=== PATIENT | male | born 1950 | race Caucasian/White ===

== ENCOUNTER 2020-01-17 18:44 | Emergency (ER) | payer BC, MEDICARE ==
--- NOTE | 2020-01-17 19:14 | EDM.PDOC ---
ED HPI GENERAL MEDICAL PROBLEM - General Chief Complaint: Chest Pain Stated Complaint: DIZZY Time Seen by Provider: 01/17/20 19:04 - History of Present Illness INITIAL COMMENTS - FREE TEXT/NARRATIVE: 69-year-old male presents the emergency room with a chief complaint of dizziness and chest pain. Patient around 3:00 this afternoon noticed when he stood up he got dizzy. He also had some sharp lower chest discomfort with this. Patient has a history of type 2 diabetes hypertension hyperlipidemia. Family history is significant for brother who had a heart attack in his 50s the patient smoked but quit 33 years ago and quit alcohol 43 years ago. The patient is diaphoretic in his sleep but did not have any diaphoresis with today's events he also had no breathing difficulty shortness of breath. Patient is type 2 diabetes he has been treated for about 5 years. The patient does have some vague back pain mostly on the right side. It is unclear how long this is been present. - Related Data Allergies Allergy/AdvReac Type Severity Reaction Status Date / Time No Known Allergies Allergy Verified 01/17/20 18:56 Home Meds: Home Meds Canagliflozin [Invokana] 300 mg PO DAILY 01/17/20 [History] Omeprazole 20 mg PO DAILY 01/17/20 [History] atorvaSTATin [Lipitor] 5 mg PO DAILY 01/17/20 [History] glipiZIDE [Glipizide ER] 5 mg PO DAILY 01/17/20 [History] metFORMIN HCl [Metformin ER Gastric] 1,000 mg PO DAILY 01/17/20 [History] ED ROS GENERAL - Review of Systems Review Of Systems: See Below Constitutional: Reports: No Symptoms HEENT: Reports: No Symptoms Respiratory: Reports: No Symptoms Cardiovascular: Reports: Chest Pain, Lightheadedness GI/Abdominal: Reports: No Symptoms : Reports: No Symptoms Musculoskeletal: Reports: No Symptoms Skin: Reports: No Symptoms Neurological: Reports: No Symptoms Psychiatric: Reports: No Symptoms Hematologic/Lymphatic: Reports: No Symptoms Immunologic: Reports: No Symptoms ED EXAM, GENERAL - Physical Exam Exam: See Below Exam Limited By: No Limitations General Appearance: Alert, No Apparent Distress Eye Exam: Bilateral Eye: Normal Inspection Ears: Normal External Exam, Normal Canal, Hearing Grossly Normal, Normal TMs Nose: Normal Inspection, Normal Mucosa, No Blood Throat/Mouth: Normal Inspection, Normal Lips, Normal Teeth, Normal Gums, Normal Oropharynx, Normal Voice, No Airway Compromise Respiratory/Chest: No Respiratory Distress, Lungs Clear, Normal Breath Sounds, No Accessory Muscle Use, Chest Non-Tender Cardiovascular: Normal Peripheral Pulses, Regular Rate, Rhythm, No Edema, No JVD, No Murmur GI/Abdominal: Normal Bowel Sounds, Soft, Non-Tender, No Organomegaly, No Distention, No Abnormal Bruit, No Mass Back Exam: Normal Inspection. No: CVA Tenderness (L), CVA Tenderness (R) Extremities: Normal Inspection, No Pedal Edema Neurological: Alert, Oriented, Normal Cognition Psychiatric: Normal Affect, Normal Mood Skin Exam: Warm, Dry, Intact EKG INTERPRETATION EKG Date: 01/17/20 Rhythm: NSR [place]: Normal P-Wave: Present QRS: Normal ST-T: Normal QT: Normal Comparison: NA - No Prior EKG EKG Interpretation Comments: Normal EKG Course - Vital Signs Last Recorded V/S: Last Vital Signs Temp 36.3 C 01/17/20 19:01 Pulse 71 01/17/20 19:01 Resp 16 01/17/20 19:01 BP 135/85 01/17/20 19:01 Pulse Ox 99 01/17/20 19:01 Orthostatic Blood Pressure [ 141/82 Standing] Orthostatic Blood Pressure [ 129/92 Sitting] Orthostatic Blood Pressure [ 121/81 Supine] - Orders/Labs/Meds Orders: Active Orders 24 hr Category Date Time Status Chest 1V Frontal [CR] Stat Exams 01/17/20 19:34 Taken Lactated Ringers [Ringers, Lactated] 1,000 ml Med 01/17/20 19:45 Active IV ASDIRECTED Medication Orders Lactated Ringer's (Ringers, Lactated) 1,000 mls @ 125 mls/hr IV ASDIRECTED KIRSTEN Labs: Laboratory Tests 01/17/20 01/17/20 01/17/20 Range/Units 19:14 19:14 19:14 WBC 7.62 (4.23-9.07) K/mm3 RBC 5.06 (4.63-6.08) M/mm3 Hgb 16.3 (13.7-17.5) gm/dl Hct 46.6 (40.1-51.0) % MCV 92.1 (79.0-92.2) fl MCH 32.2 (25.7-32.2) pg MCHC 35.0 (32.2-35.5) g/dl RDW Std Deviation 42.2 (35.1-43.9) fL Plt Count 292 (163-337) K/mm3 MPV 10.9 (9.4-12.3) fl Neut % (Auto) 58.1 (34.0-67.9) % Lymph % (Auto) 30.7 (21.8-53.1) % [place] % (Auto) 7.0 (5.3-12.2) % Eos % (Auto) 3.4 (0.8-7.0) Baso % (Auto) 0.4 (0.1-1.2) % Neut # (Auto) 4.43 (1.78-5.38) K/mm3 Lymph # (Auto) 2.34 (1.32-3.57) K/mm3 [place] # (Auto) 0.53 (0.30-0.82) K/mm3 Eos # (Auto) 0.26 (0.04-0.54) K/mm3 Baso # (Auto) 0.03 (0.01-0.08) K/mm3 PT 10.4 (9.7-11.7) SECONDS INR 0.97 APTT 25 (22-31) SECONDS D-Dimer, Quantitative < 0.19 L (0.19-0.50) mg/L Sodium 140 (136-145) mEq/L Potassium 3.9 (3.5-5.1) mEq/L Chloride 102 (98-107) mEq/L Carbon Dioxide 29 (21-32) mEq/L Anion Gap 12.9 (5-15) BUN 20 H (7-18) mg/dL Creatinine 1.0 (0.7-1.3) mg/dL Est Cr Clr Drug Dosing 76.52 mL/min Estimated GFR (MDRD) > 60 (>60) mL/min BUN/Creatinine Ratio 20.0 H (14-18) Glucose 130 H (80-115) mg/dL Calcium 9.1 (8.5-10.1) mg/dL Magnesium 2.3 (1.8-2.4) mg/dl Total Bilirubin 0.6 (0.2-1.0) mg/dL AST 19 (15-37) U/L ALT 43 (16-63) U/L Alkaline Phosphatase 63 (46-116) U/L Troponin I < 0.017 (0.00-0.056) ng/mL Total Protein 7.6 (6.4-8.2) g/dl Albumin 4.3 (3.4-5.0) g/dl Globulin 3.3 gm/dL Albumin/Globulin Ratio 1.3 (1-2) Urine Color (Yellow) Urine Appearance (Clear) Urine pH (5.0-8.0) Ur Specific [place] (1.005-1.030) Urine Protein (Negative) Urine Glucose (UA) (Negative) Urine Ketones (Negative) Urine Occult Blood (Negative) Urine Nitrite (Negative) Urine Bilirubin (Negative) Urine Urobilinogen (0.2-1.0) Ur Leukocyte Esterase (Negative) 01/17/20 01/17/20 Range/Units 19:40 22:09 WBC (4.23-9.07) K/mm3 RBC (4.63-6.08) M/mm3 Hgb (13.7-17.5) gm/dl Hct (40.1-51.0) % MCV (79.0-92.2) fl MCH (25.7-32.2) pg MCHC (32.2-35.5) g/dl RDW Std Deviation (35.1-43.9) fL Plt Count (163-337) K/mm3 MPV (9.4-12.3) fl Neut % (Auto) (34.0-67.9) % Lymph % (Auto) (21.8-53.1) % [place] % (Auto) (5.3-12.2) % Eos % (Auto) (0.8-7.0) Baso % (Auto) (0.1-1.2) % Neut # (Auto) (1.78-5.38) K/mm3 Lymph # (Auto) (1.32-3.57) K/mm3 [place] # (Auto) (0.30-0.82) K/mm3 Eos # (Auto) (0.04-0.54) K/mm3 Baso # (Auto) (0.01-0.08) K/mm3 PT (9.7-11.7) SECONDS INR APTT (22-31) SECONDS D-Dimer, Quantitative (0.19-0.50) mg/L Sodium (136-145) mEq/L Potassium (3.5-5.1) mEq/L Chloride (98-107) mEq/L Carbon Dioxide (21-32) mEq/L Anion Gap (5-15) BUN (7-18) mg/dL Creatinine (0.7-1.3) mg/dL Est Cr Clr Drug Dosing mL/min Estimated GFR (MDRD) (>60) mL/min BUN/Creatinine Ratio (14-18) Glucose (80-115) mg/dL Calcium (8.5-10.1) mg/dL Magnesium (1.8-2.4) mg/dl Total Bilirubin (0.2-1.0) mg/dL AST (15-37) U/L ALT (16-63) U/L Alkaline Phosphatase (46-116) U/L Troponin I < 0.017 (0.00-0.056) ng/mL Total Protein (6.4-8.2) g/dl Albumin (3.4-5.0) g/dl Globulin gm/dL Albumin/Globulin Ratio (1-2) Urine Color Yellow (Yellow) Urine Appearance Clear (Clear) Urine pH 6.0 (5.0-8.0) Ur Specific [place] 1.020 (1.005-1.030) Urine Protein Negative (Negative) Urine Glucose (UA) 2+ H (Negative) Urine Ketones Negative (Negative) Urine Occult Blood Negative (Negative) Urine Nitrite Negative (Negative) Urine Bilirubin Negative (Negative) Urine Urobilinogen 0.2 (0.2-1.0) Ur Leukocyte Esterase Negative (Negative) Meds: Medications Generic Name Dose Route Start Last Admin Trade Name Freq PRN Reason Stop Dose Admin Lactated Ringer's 1,000 mls @ 125 mls/hr 01/17/20 19:45 Ringers, Lactated IV ASDIRECTED KIRSTEN Discontinued Medications Generic Name Dose Route Start Last Admin Trade Name Freq PRN Reason Stop Dose Admin Aspirin 324 mg 01/17/20 19:35 01/17/20 19:53 Aspirin PO 01/17/20 19:36 324 mg ONETIME ONE Administration Lactated Ringer's 500 mls @ 999 mls/hr 01/17/20 19:35 01/17/20 20:27 Ringers, Lactated IV 01/17/20 20:05 Infused .BOLUS ONE Infusion Ondansetron HCl 4 mg 01/17/20 19:44 01/17/20 19:53 Zofran IVPUSH 01/17/20 19:45 4 mg ONETIME ONE Administration - Re-Assessments/Exams Free Text/Narrative Re-Assessment/Exam: 01/17/20 20:05 Patient had a brief episode of emesis while giving us a urine specimen. 01/17/20 21:58 Labs look good chest x-ray shows no acute cardiopulmonary changes questionable fracture of the left rib unknown age. With the patient is diabetes that transient episode of vomiting we will check another troponin. The patient has n ot had any chest pain while here in the emergency room. This was brief with the dizziness. And the dizziness actually lasted much longer than the chest pain 01/17/20 23:08 Second troponin is negative we will discharge at this time patient is doing well. He has not developed any more dizziness or chest pain. Departure - Departure Time of Disposition: 23:08 Disposition: Home, Self-Care 01 Clinical Impression: Light headedness, Chest pain Referrals: Erik Whitt MD [Primary Care Provider] - Forms: ED Department Discharge Additional Instructions: Return to the emergency room with any questions problems or worsening symptoms. Follow-up with your regular physician early this next week discuss outpatient heart rhythm monitoring or possibly a stress test. Continue your routine medications If you have another episode such as this immediately check your blood sugar. You are not already doing so take a baby aspirin, 81 mg enteric-coated daily. Sepsis Event Note (ED) - Evaluation Sepsis Screening Result: No Definite Risk - Focused Exam Vital Signs: Vital Signs Temp Pulse Resp BP Pulse Ox 01/17/20 19:01 36.3 C 71 16 135/85 99 - My Orders Last 24 Hours: My Active Orders 01/17/20 19:34 Chest 1V Frontal [CR] Stat 01/17/20 19:45 Lactated Ringers [Ringers, Lactated] 1,000 ml IV ASDIRECTED - Assessment/Plan Last 24 Hours: My Active Orders 01/17/20 19:34 Chest 1V Frontal [CR] Stat 01/17/20 19:45 Lactated Ringers [Ringers, Lactated] 1,000 ml IV ASDIRECTED
[2020-01-17] MEDS ORDERED: Lactated Ringers 500 ML IV ONE (19:35)
[2020-01-17] MEDS ORDERED: Aspirin 81 MG Tab.Chew PO ONE (19:35)
[2020-01-17] MEDS ORDERED: Ondansetron 4 MG/2 ML SDV IVPUSH ONE (19:44)
[2020-01-17] MEDS ORDERED: Lactated Ringers 1,000 ML IV SCH (19:45)
--- NOTE | 2020-02-27 11:11 | CR ---
PROCEDURE INFORMATION: Exam: XR Chest, 1 View Exam date and time: 01/17/2020 7:45 PM Age: 69 years old Clinical indication: Chest pain; Type not specified TECHNIQUE: Imaging protocol: XR of the chest Views: 1 view. COMPARISON: No relevant prior studies available. FINDINGS: Lungs: The lung volumes are low, but the lungs appear clear. Pleural space: There are no pleural effusions. There is no pneumothorax. Heart/Mediastinum: The heart size is normal as are the mediastinal and hilar contours. The pulmonary vessels are normal. Bones/joints: There is a fracture of the left 9th rib which is of uncertain acuity. The bones otherwise appear normal. IMPRESSION: Fracture of the left 9th rib, of uncertain acuity. Otherwise normal exam. Thank you for allowing us to participate in the care of your patient. Dictated and Authenticated by: Stephanie Gandhi MD 02/26/2020 5:24 PM Central Time ([place] & [place]) [email or web address]
== END 2020-01-17 23:22 | disposition home or self-care (01) ==
LOC: JD.ED 18:44
DX: R42 Dizziness and giddiness (principal); R07.89 Other chest pain; E11.9 Type 2 diabetes mellitus without complications; I10 Essential (primary) hypertension; E78.5 Hyperlipidemia, unspecified; Z87.891 Personal history of nicotine dependence; Z79.84 Long term (current) use of oral hypoglycemic drugs; Z79.899 Other long term (current) drug therapy
CPT/HCPCS: 36415; 71045; 80053; 81003; 83735; 84484; 85025; 85379; 85610; 85730; 96361; 96374; 99285; A9270; J2405; J7120; 93010; 99284

== ENCOUNTER 2023-05-10 07:25 | Day surgery (SDC) | payer BC ==
[~2023-05-10 07:25] MED LIST: Lactated Ringers 1,000 ML IV SCH; Morphine 8 MG, EPINEPHrine 0.3 MG, Cefuroxime 750 MG, Ketorolac 30 MG, Sodium Chloride ... PRN; Sodium Chloride 0.9% 10 ML Syringe FLUSH PRN; Sodium Chloride 0.9% 10 ML Syringe FLUSH SCH; Tranexamic Acid 1,000 MG/10 ML Vial ONE; Vancomycin 1 GM SDV ONE
[2023-05-10] MEDS ORDERED: Ropivacaine 0.5% 5 MG/ML 30 ML SDV ONE (08:13)
[2023-05-10] MEDS ORDERED: Lidocaine 2% 5 ML SDV ONE (08:15)
[2023-05-10] MEDS ORDERED: Propofol 200 MG/20 ML SDV ONE (08:16)
[2023-05-10] MEDS ORDERED: fentaNYL 100 MCG/2 ML SDV ONE (08:19)
[2023-05-10] MEDS ORDERED: ceFAZolin 2 GM Vial ONE (09:33)
[2023-05-10] MEDS ORDERED: Ondansetron 4 MG/2 ML SDV IVPUSH PRN (09:59)
[2023-05-10] MEDS ORDERED: HYDROmorphone 0.5 MG/0.5 ML Syringe IVPUSH PRN (09:59)
[2023-05-10] MEDS ORDERED: fentaNYL 100 MCG/2 ML SDV IVPUSH PRN (09:59)
[2023-05-10] MEDS ORDERED: oxyCODONE 5 MG Tab PO SCH (12:16)
== END 2023-05-10 14:15 | disposition home or self-care (01) ==
LOC: JD.SDS 07:25
PROVIDERS: ATTEND Orthopaedic Surgery
DX: M17.12 Unilateral primary osteoarthritis, left knee (principal); E11.9 Type 2 diabetes mellitus without complications; C91.10 Chronic lymphocytic leukemia of B-cell type not having achieved remission; E78.2 Mixed hyperlipidemia; K51.20 Ulcerative (chronic) proctitis without complications; K21.9 Gastro-esophageal reflux disease without esophagitis; Z87.891 Personal history of nicotine dependence; Z79.84 Long term (current) use of oral hypoglycemic drugs; Z79.899 Other long term (current) drug therapy; Z88.0 Allergy status to penicillin
CPT/HCPCS: 73560-26-LT; 73560-LT; 97116-GP; 97161-GP; A9270-GY; C1713; C1776; J0171; J0690; J0697; J1885; J2270; J2704; J2795; J3010; J3370; J3490; J7030; J7120